=== PATIENT | male | born 1960 ===

== ENCOUNTER 2017-05-14 09:27 | Emergency (ER) | payer OTHER ==
[~2017-05-14] VITALS: Ht 180.3 cm; Wt 95.3 kg
[~2017-05-14 09:27] MED LIST: ATARAX25 MG PO; ZYRTEC10 M3 PO
[2017-05-14] MEDS ORDERED: ULTRACET PO (12:21)
[2017-05-14] MEDS ORDERED: NEURONTIN300 MG PO (12:21)
== END 2017-05-14 12:28 | disposition home or self-care (01) ==
LOC: ER 09:27
DX: G44.209 Tension-type headache, unspecified, not intractable (principal)